=== PATIENT | male | born 1995 | race African-American/Black ===

== ENCOUNTER 2021-04-08 14:15 | Emergency (ER) | payer MEDICAID ==
[~2021-04-08] VITALS: Ht 185.4 cm; Wt 78.0 kg
[2021-04-08 14:24] VITALS: BP 128/73
[2021-04-08] MEDS ORDERED: ONDANSETRON HCL 4MG/2ML INJ IV STA (15:41)
[2021-04-08] MEDS ORDERED: SODIUM CHLORIDE 0.9% 1,000 ML IV ONE (15:45)
== END 2021-04-08 16:17 | disposition left against medical advice (07) ==
LOC: ER 14:15
DX: R11.2 Nausea with vomiting, unspecified (principal); Z53.21 Procedure and treatment not carried out due to patient leaving prior to being seen by health care provider
CPT/HCPCS: J7030

== ENCOUNTER 2021-04-23 19:47 | Emergency (ER) | payer MEDICAID ==
[~2021-04-23] VITALS: Ht 185.4 cm; Wt 79.0 kg
[2021-04-23 21:07] VITALS: BP 132/49
[2021-04-23] MEDS ORDERED: LIDOCAINE HCL/EPINEPHRINE 1%-EPI 1:100,000 10 ML VIAL IJ ONE (21:45)
[2021-04-23] MEDS ORDERED: LIDOCAINE HCL/EPINEPHRINE 1%-EPI 1:100,000 20 ML VIAL INFIL NR (22:00)
[2021-04-23] MEDS ORDERED: IBUP-2029 MT (22:41)
[2021-04-23] MEDS ORDERED: CEPH500T MT (22:42)
[2021-04-23] MEDS ORDERED: BACITRACIN ZINC OINT UDPKT TOP ONE (23:00)
== END 2021-04-23 23:00 | disposition home or self-care (01) ==
LOC: ER 19:47
DX: L02.811 Cutaneous abscess of head [any part, except face] (principal)
CPT/HCPCS: 10060; 99284; J3490

== ENCOUNTER 2025-05-06 09:57 | Emergency (ER) | payer MEDICAID ==
[~2025-05-06] VITALS: Ht 182.9 cm; Wt 75.0 kg
[~2025-05-06 09:57] MED LIST: CEPH500T MT; IBUP-2029 MT
[2025-05-06 09:59] VITALS: O2SAT 100
[2025-05-06] MEDS: DIPHENHYDRAMINE 50MG/ML VIAL IV ONE (10:32)
[2025-05-06] MEDS: FAMOTIDINE 20MG/2ML VIAL IV ONE (10:32)
[2025-05-06] MEDS: METHYLPREDNISOLONE SOD SUCC 125MG/2ML (ACT-O-VIAL) IV ONE (10:32)
[2025-05-06] MEDS: KETOROLAC 30MG/ML VIAL IV ONE (11:13)
[2025-05-06] MEDS ORDERED: EPIN0.3P3 IM (11:45)
[2025-05-06 12:03] VITALS: BP 119/60; PULSE 60; RESP 19; TEMP 36.7; O2SAT 98
== END 2025-05-06 12:08 | disposition home or self-care (01) ==
LOC: ER 09:57
DX: T78.40XA Allergy, unspecified, initial encounter (principal); X58.XXXA Exposure to other specified factors, initial encounter
CPT/HCPCS: 96374; 96375; 99291; J1200; J1308; J2919; Z7610